=== PATIENT | female | born 1955 | race Caucasian/White ===

== ENCOUNTER → 2019-05-11 12:03 | Outpatient (CLI) | payer BC, MEDICARE, SELFPAY ==
--- NOTE | ~2019-05-11 | CT_ITS ---
EXAMINATION: CT abdomen pelvis wo/w con DATE: 05/11/2019 12:46 INDICATION: Right upper quadrant pain TECHNIQUE: Computed tomography (CT) of the abdomen and pelvis was performed without and with 100 cc O mnipaque 350 intravenous contrast. The dose-length product was 360.41 mGy-cm. Automated exposure cont rol and iterative reconstruction technique were employed. COMPARISON: CT dated 05/13/2012 FINDINGS: Stable 5 mm right lower lobe nodule, image 15. Stable 4 mm left lower lobe nodule, image 13 . There is a new 5 mm right lower lobe nodule, image 1 which may have not been included on prior exam ination. No significant pleural or pericardial effusion. No renal stones. Heart size normal. No signi ficant vascular abnormality. No lymphadenopathy. The liver, spleen, pancreas, adrenal glands and kidneys are unremarkable. Gallbladder is present. Preble el pattern is nonobstructive. Moderate-severe lumbar spondylosis with levoscoliosis. IMPRESSION: 1. No acute abdominal abnormality. 2: Bilateral lower lobe nodules, 2 of which are stable. There is a 5 mm right lower lobe nodule not s een on prior examination, possibly not included. 12 month interval low dose CT chest recommended. Reviewed, dictated and finalized at location A. IC WORKER IMPRESSION: 1. No acute abdominal abnormality. 2: Bilateral lower lobe nodules, 2 of which are stable. There is a 5 mm right l ower lobe nodule not seen on prior examination, possibly not included. 12 month interval low dose CT chest recommended.
[2019-05-11 12:37] LABS: Blood Urea Nitrogen 18 mg/dL (8-26); Estimated Glomerular Filt Rate > 60
== END ==
PROVIDERS: PCP Internal Medicine; Visit Provider Internal Medicine
DX: Z12.31 Encounter for screening mammogram for malignant neoplasm of breast (principal); R10.11 Right upper quadrant pain; R91.8 Other nonspecific abnormal finding of lung field
CPT/HCPCS: 74178; Q9967

== ENCOUNTER → 2019-06-07 12:29 | Outpatient (CLI) | payer BC, MEDICARE, SELFPAY ==
--- NOTE | ~2019-06-07 | MM_ITS ---
EXAMINATION: MM screening [facility] BI w ke HISTORY: Screening mammogram TECHNIQUE: Craniocaudal and mediolateral oblique 3-D tomosynthesis images were obtained and synthetic 2-D images were generated. CAD analysis was submitted and interpreted. COMPARISON: 03/30/2014 BREAST PARENCHYMAL COMPOSITION: The breasts are heterogeneously dense, which may obscure small masses . FINDINGS: There is no evidence of suspicious mass, calcification, or architectural distortion to sugg est malignancy in either breast. There has been no suspicious interval change. IMPRESSION: 1. No mammographic evidence of malignancy. 2. Recommend routine screening mammography in one year. BI-RADS Category 1: Negative Reviewed, dictated and finalized at location A. CRIB ATTENDANT
== END ==
PROVIDERS: PCP Internal Medicine; Visit Provider Internal Medicine
DX: Z12.31 Encounter for screening mammogram for malignant neoplasm of breast (principal)
CPT/HCPCS: 77063; 77067

== ENCOUNTER → 2020-02-15 09:57 | Outpatient (CLI) | payer BC, MEDICARE, SELFPAY ==
--- NOTE | ~2020-02-15 | CT_ITS ---
EXAMINATION: CT chest wo con DATE: 02/15/2020 10:11 INDICATION: Lung nodules TECHNIQUE: Computed tomography (CT) of the chest was performed without intravenous contrast. The dose -length product (DLP) was 37.18 mGy-cm. Automated exposure control and iterative reconstruction techn ique were employed. COMPARISON: 05/11/2019, 10/29/2012 FINDINGS: There are multiple nodules scattered throughout the lungs which do not demonstrate suspicio us interval change since the 2012 comparison, consistent with old granulomatous disease. There is no pleural effusion or pneumothorax. Atelectasis or scarring is noted in the lingula. A chronic area of subpleural scarring is noted anteriorly in the left lung apex. There are partially imaged changes of cervical spinal fusion. IMPRESSION: 1. Multiple pulmonary nodules without suspicious change, consistent with old granulomatous disease. Reviewed, dictated and finalized at location A. AINABILITY PROJECT COORDINATOR IMPRESSION: 1. Multiple pulmonary nodules without suspicious change, consistent with old gr anulomatous disease.
== END ==
PROVIDERS: PCP Internal Medicine; Visit Provider Internal Medicine
DX: R91.8 Other nonspecific abnormal finding of lung field (principal)
CPT/HCPCS: 71250

== ENCOUNTER → 2021-05-24 15:03 | Outpatient (CLI) | payer BC, MEDICARE, SELFPAY ==
--- NOTE | ~2021-05-24 | MM_ITS ---
EXAMINATION: MM screening [facility] BI w ke HISTORY: Screening mammogram TECHNIQUE: Craniocaudal and mediolateral oblique 3-D tomosynthesis images were obtained and synthetic 2-D images were generated. CAD analysis was submitted and interpreted. COMPARISON: 06/07/2019, 02/25/2018, 03/30/2014 BREAST PARENCHYMAL COMPOSITION: The breasts are heterogeneously dense, which may obscure small masses . FINDINGS: There is no evidence of suspicious mass, calcification, or architectural distortion to sugg est malignancy in either breast. There has been no suspicious interval change. IMPRESSION: 1. No mammographic evidence of malignancy. 2. Recommend routine screening mammography in one year. BI-RADS Category 1: Negative Reviewed, dictated and finalized at location A. OR TAX ANALYST
== END ==
PROVIDERS: Visit Provider Internal Medicine
DX: Z12.31 Encounter for screening mammogram for malignant neoplasm of breast (principal)
CPT/HCPCS: 77063; 77067